=== PATIENT | female | born 1980 ===

== ENCOUNTER 2016-08-23 12:08 | Emergency (ER) | payer SELFPAY ==
[2016-08-23 14:01] LABS: BASO # 0.1 K/uL (0.0-0.2); BASO % 0.9 % (0.0-2.0); EOS % 0.2 % (0.0-4.0); HEMATOCRIT 38.3 % (34.0-47.0); LYMPH # 1.1 K/uL (1.0-4.3); LYMPH % 8.9 % (20.0-40.0); MEAN CORPUSCULAR HEMOGLOBIN 28.5 pg (27.0-31.0); MEAN CORPUSCULAR HGB CONC 32.4 g/dL (33.0-37.0); MEAN PLATELET VOLUME 10.3 fl (7.2-11.7); MONO # 0.4 K/uL (0.0-0.8); MONO % 3.3 % (0.0-10.0); NEUT # 10.5 K/uL (1.8-7.0); NEUT % 86.7 % (50.0-75.0); PLATELET COUNT 213 K/uL (130-400); RED CELL DISTRIBUTION WIDTH 13.7 % (11.5-14.5); WHITE BLOOD COUNT 12.2 K/uL (4.8-10.8)
[2016-08-23 14:09] LABS: ALB/GLOB RATIO 1.2 (1.0-2.1); ALKALINE PHOSPHATASE 59 U/L (38-126); ALT/SGPT 40 U/L (9-52); AST/SGOT 24 U/L (14-36); BILIRUBIN,TOTAL 0.4 mg/dl (0.2-1.3); BLOOD UREA NITROGEN 12 mg/dl (7-17); CALCIUM 9.3 mg/dL (8.4-10.2); CARBON DIOXIDE 19 mmol/L (22-30); CHLORIDE 106 mmol/L (98-107); GFR AFRICAN-AMERICAN > 60; GLUCOSE,RANDOM 87 mg/dL (65-105); POTASSIUM 3.9 MMOL/L (3.6-5.0); SODIUM 133 mmol/l (132-148); TOTAL PROTEIN 7.1 G/DL (6.3-8.2)
--- NOTE | 2016-08-23 14:50 | ED PDOC ---
HPI: Female Pain Time Seen by Provider: 08/23/16 13:00 Chief Complaint (Nursing): Female Genitourinary Chief Complaint (Provider): wayne genitourinary History Per: Patient History/Exam Limitations: no limitations Onset/Duration Of Symptoms: Days (x 1) Current Symptoms Are (Timing): Still Present Associated Symptoms: denies: Fever, Chills, Nausea, Vomiting, Urinary Symptoms Additional Complaint(s): Dayami Quintanilla is a 36 year old female, with no previous medical history, who is currently 6 weeks presenting to the ED with complaints of lower abdominal pain ongoing since yesterday. Pt reports associated symptoms of vaginal bleeding yesterday resulting in 3 saturated pads and lower back pain. Pt denies any fever, chills, urinary symptoms, vaginal discharge or any vaginal bleeding today. of note, pt had 2 miscarriages and 1 PMD: none provided Abnormal Vaginal Bleeding: Yes Past Medical History Reviewed: Historical Data, Nursing Documentation, Vital Signs Vital Signs: Last Vital Signs Temp 98.0 F 08/23/16 12:47 Pulse 75 08/23/16 12:47 Resp 16 08/23/16 12:47 BP 113/62 08/23/16 12:47 Pulse Ox 99 08/23/16 12:47 - Medical History PMH: No Chronic Diseases - Family History Family History: States: No Known Family Hx - Allergies Allergies/Adverse Reactions: Allergies Allergy/AdvReac Type Severity Reaction Status Date / Time No Known Allergies Allergy Verified 08/23/16 12:46 Review of Systems ROS Statement: Except As Marked, All Systems Reviewed And Found Negative Constitutional: Negative for: Fever, Chills Gastrointestinal: Positive for: Abdominal Pain. Negative for: Nausea, Vomiting Genitourinary Female: Positive for: Vaginal Bleeding. Negative for: Dysuria, Frequency, Incontinence, Hematuria, Vaginal Discharge Musculoskeletal: Positive for: Back Pain (lower) Physical Exam - Reviewed Nursing Documentation Reviewed: Yes Vital Signs Reviewed: Yes - Physical Exam Appears: Positive for: Well, Non-toxic, No Acute Distress Head Exam: Positive for: ATRAUMATIC, NORMAL INSPECTION, NORMOCEPHALIC Skin: Positive for: Normal Color, Warm, DRY Eye Exam: Positive for: EOMI, Normal appearance, PERRL ENT: Positive for: Normal ENT Inspection Neck: Positive for: Normal, Painless ROM Cardiovascular/Chest: Positive for: Regular Rate, Rhythm Respiratory: Positive for: CNT, Normal Breath Sounds Gastrointestinal/Abdominal: Positive for: Bowel Sounds, Soft, Tenderness ( pelvic tenderness ) Back: Positive for: Other (diffuse lower back tenderness). Negative for: L CVA Tenderness, R CVA Tenderness Extremity: Positive for: Normal ROM Neurologic/Psych: Positive for: Alert, Oriented - Laboratory Results Result Diagrams: 08/23/16 13:40 08/23/16 13:40 - ECG O2 Sat by Pulse Oximetry: 99 (RA) Pulse Ox Interpretation: Normal Medical Decision Making Medical Decision Making: Initial Impression: r/o ectopic Initial Plan: * type and screen * ABO-RH * beta--HCG * labs * US 1st trimester * reevaluation * * US: shows live IUP @8weeks. advise to continue care Scribe Attestation: Documented by Ashley Mccray, acting as a scribe for Raine Lopez PA-C. Provider Scribe Attestation: All medical record entries made by the Scribe were at my direction and personally dictated by me. I have reviewed the chart and agree that the record accurately reflects my personal performance of the history, physical exam, medical decision making, and the department course for this patient. I have also personally directed, reviewed, and agree with the discharge instructions and disposition. Disposition - Clinical Impression Clinical Impression: - Patient ED Disposition Is Patient to be Admitted: No Counseled Patient/Family Regarding: Studies Performed, Diagnosis, Need For Followup - Disposition [facility] Disposition: Routine/Home Disposition Time: 16:51 Condition: GOOD Instructions: (ED)
[2016-08-23 15:44] LABS: EOSINOPHIL 2 % (0-7); NEUTROPHIL 85 % (42-75); REACTIVE LYMPHOCYTES 1 % (0-0); TOTAL CELLS COUNTED 100
[2016-08-23 15:47] LABS: LARGE PLATELETS PRESENT
--- NOTE | 2016-08-23 16:35 | US ---
Indication: 6 weeks , heavy vaginal bleeding. Comparison: None available Technique: Transabdominal pelvic ultrasound. The patient refused transvaginal pelvic ultrasound. Findings: The uterus measures approximately 13.9 x 5.0 x 6.8 cm. Cervix length measures approximately 4.0 cm. There is a single intrauterine fetus present. 4 mm yolk sac. The gestational sac measures 3.1 cm and is compatible with a gestational age of 8 weeks 0 days. The crown-rump length measures 0.8 cm and is compatible with a gestational age of 6 weeks 5 days. There is heart motion which measured 131 BPM. The right ovary measures 3.4 x 3.5 x 2.4 cm and contains 2.0 x 1.5 x 1.8 cm hypo echogenicity with surrounding vascularity, likely corpus luteal cyst. The left ovary is not visualized. Blood flow is demonstrated to the right ovary. Impression: Live single intrauterine with estimated gestational age 8 weeks 0 days by gestational sac calculation and 6 weeks 5 days by crown-rump length calculation. heart rate 131 bpm. Advise an anomaly screen at 16-18 weeks gestational age Probable 2.0 cm right corpus luteal cyst. The left ovary was not visualized.
[2016-08-23 17:30] VITALS: BP 128/78; PULSE 78; RESP 20; TEMP 98; O2SAT 98
== END 2016-08-23 17:30 | disposition home or self-care (01) ==
LOC: H.ER 12:08
DX: Z33.1 Pregnant state, incidental (principal); Z3A.01 Less than 8 weeks gestation of pregnancy

== ENCOUNTER 2016-12-08 17:11 | Emergency (ER) | payer SELFPAY ==
[2016-12-08 19:18] VITALS: BMI 29.5
[2016-12-08 20:33] LABS: SQUAMOUS EPITHIAL < 1 /hpf (0-5); URINE BILIRUBIN NEGATIVE (NEGATIVE); URINE BLOOD NEGATIVE (NEGATIVE); URINE CALCIUM OXALATE CRYSTALS RARE /hpf (<OCC); URINE CLARITY CLEAR (Clear); URINE COLOR YELLOW (YELLOW); URINE GLUCOSE (UA) NEG (Normal); URINE LEUKOCYTE ESTERASE NEG Leu/uL (Negative); URINE NITRATE NEGATIVE (NEGATIVE); URINE PROTEIN NEGATIVE (NEGATIVE); URINE UROBILINOGEN 0.2-1.0 mg/dL (0.2-1.0)
--- NOTE | 2016-12-08 21:00 | OBHP ---
Datetime: 12/08/2016 17:48 IP Adm Impression: , intrauterine ; No Active Labor IP Chief Complaint Other: Lower back pain IP Admit Plan: Observation/Evaluation Admit Comment, IP Provider: This a 36 y/o with 21.6 weeks GA, JOCE 04/14/17 by LMP and confirmed by 1st trim US, presents with low back pain. Pain began 2 weeks ago, 7/10 intensity, progressively a ggravating, non-radiating and exacerbated with prolong standing and sitting. OTC Tylenol provided NO improvement. Pt also complains of scant white vaginal discharge since a few days ago. Last coitus 2-3 weeks ago. Pt denies trauma, CP, SOB, vaginal bleeding, urinary frequency or dysuria. Medications: PNV. NKDA. PMHx: denied. PSHx: denied. OBHx: 3 spontaneous abortions during 1st trimester, last 2 on 2014 and 2015; 1 induced . P ap smear on 07/29/16: ASCUS HPV neg. SHx: NO smoking, alcohol or recreational drugs. A_P: 36 y/o with 21.6 weeks GA with persistent low back pain. Pt will be observed. FHT monitoring. urinalysis, urine culture. Lan Rust, PGY-1. The patient was observed for several hours the cervix was long closed posterior no cervical change s noted. UA was negative patient was advised to continue her stretching exercises consider physical t herapy and follow-up with PMD this week. labor precautions provided Pelvic Type - PN: Adequate Extremities - PN: Normal Abdomen - PN: Normal Back - PN: Abnormal Breast - PN: Normal Lungs - PN: Normal Heart - PN: Normal Thyroid - PN: Normal Neurologic - PN: Normal HEENT - PN: Normal General - PN: Normal FHR - Baseline A Provider: 140 Comments, ACOG Physical Exam: Gen: AAO x3, not in distress HEENT: NT, NC. CV: s1 and s2 present. Lungs: CTAB b/l Posterior thorax: presence of tenderness. ABD: . non-tender. IP Hx Assessment: The History has been Reviewed and is Current EGA AdmitDate IP: 21.6 Vital Signs Provider: Reviewed; Within Normal Limits IP Chief Complaint: Other NICHD Variability Prov Fetus A: Moderate 6-25bpm NICHD Accel Fetus A IP Provider: 15X15 Genitourinary Exam: Normal DTRs - PN: Normal
== END 2016-12-08 20:55 | disposition home or self-care (01) ==
LOC: H.EROB2 17:11
DX: O47.02 False labor before 37 completed weeks of gestation, second trimester (principal); Z3A.21 21 weeks gestation of pregnancy; O26.92 Pregnancy related conditions, unspecified, second trimester; M54.5 Low back pain

== ENCOUNTER → 2016-12-30 | Emergency (ER) | payer SELFPAY ==
[2016-12-30 17:57] VITALS: BMI 33.2
[2016-12-30 18:32] LABS: SQUAMOUS EPITHIAL 1 /hpf (0-5); URINE BILIRUBIN NEGATIVE (NEGATIVE); URINE CLARITY CLOUDY (Clear); URINE COLOR YELLOW (YELLOW); URINE GLUCOSE (UA) NEG (Normal); URINE LEUKOCYTE ESTERASE NEG Leu/uL (Negative); URINE NITRATE NEGATIVE (NEGATIVE); URINE PROTEIN NEGATIVE (NEGATIVE); URINE UROBILINOGEN 0.2-1.0 mg/dL (0.2-1.0)
[2016-12-30 18:38] LABS: URINE BACTERIA RARE (<OCC); URINE BLOOD SMALL (NEGATIVE)
--- NOTE | 2016-12-31 09:57 | OBHP ---
Datetime: 12/30/2016 16:50 IP Adm Impression: , intrauterine ; No Active Labor IP Admit Plan: Observation/Evaluation; Discharge home Admit Comment, IP Provider: 36 y/o female with 25 weeks GA, OJCE 04/14/17 by LMP and confirme d by 1st trim US, presents to [facility] after noticing bright red blood after wiping in tissue paper about an hour ago.Denies seeing clots of blood.Pt was seen at [facility] this morning for regular visit. denies any abdominal trauma. Last coitus more than 3 weeks ago. 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 OBHx: 3 spontaneous abortions during 1st trimester, last 2 on 07/2015 and 02/2015; 1 induced abortio n. Pap smear on 07/29/16: ASCUS HPV neg. Medications: PNV. Allergies: NKDA. PMHx: denied. PSHx: denied. SHx: NO smoking, alcohol or recreational drugs. assessment: 36 y/o female with 25 weeks GA, JOCE 04/14/17 by LMP and confirmed by 1st trim US, presents to [facility] after noticing bright red blood after wiping in tissue paper about an hour ago. Plan: Continue monitor. UA UA is neg for leukocytes and nitrites. shows small quantity of urine blood. urine cx is sent and p t is advised to f/u with her OB clinic. labor precaution given. All the concerns and question s were answered. case presented and discussed with on-call OB hospitalist Dr. Romero Pantoja, PGY1 Addendum: I saw on exam and patient presentation. No evidence of labor at this time. Both maternal w ell-being and well-being reassuring at this time. Patient discharged home with labor pr eceverette. Romero Extremities - PN: Normal Abdomen - PN: Normal Back - PN: Normal Lungs - PN: Normal Heart - PN: Normal Neurologic - PN: Normal HEENT - PN: Normal General - PN: Normal FHR - Baseline A Provider: 150 Comments, ACOG Physical Exam: Pelvic exam: no blood seen in vaginal vault and speculum. cervix is lo ng and closed. Gestation - Est Wks by US: 25 weeks IP Hx Assessment: The History has been Reviewed and is Current EGA AdmitDate IP: 25.0 Vital Signs Provider: Reviewed IP Chief Complaint: Vaginal bleeding NICHD Variability Prov Fetus A: Moderate 6-25bpm NICHD Accel Fetus A IP Provider: 10X10 FHR Category Provider Fetus A: Category I NICHD Decel Fetus A IP Provider: None Genitourinary Exam: Normal DTRs - PN: Normal
== END | disposition home or self-care (01) ==
LOC: H.EROB2 16:10
DX: O47.02 False labor before 37 completed weeks of gestation, second trimester (principal); Z3A.25 25 weeks gestation of pregnancy

== ENCOUNTER 2017-04-05 21:55 | Emergency (ER) | payer SELFPAY ==
[2016-12-30 17:57] VITALS: BMI 33.2
[2017-04-06 03:26] VITALS: BP 125/61; PULSE 75
--- NOTE | 2017-04-06 08:38 | OBDCSUM ---
Datetime: 04/05/2017 23:03 Discharged to, Provider: Home Follow up at, Provider: [facility] Disch Instr Activity: Normal activity Disch Instr Diet: Regular Discharge Diagnosis, Provider: Regla Labor - Undelivered Discharge Time: 04/05/2017 23:03 Follow up in weeks, Provider: 04/08/2017 Disch Referrals: None Discharge Comment, Provider: Ob hosptialist note. I saw and examined this pt with PGY1 agree with note karmen
--- NOTE | 2017-04-06 08:39 | OBHP ---
Datetime: 04/05/2017 23:06 IP Adm Impression: Term, intrauterine IP Admit Plan: Discharge home Admit Comment, IP Provider: 36 y/o female at 38wks gestation, JOCE 04/14 by LMP consistent wi th 12wk US presents to [facility] with irregular CNTx 4hrs q 30-45min and mucuous plug release noticed toda y. Pt denies vaginal bleeding, loss of fluid, dysuria, flank pain, n/v/d, fever, chills, or headache. Pt reports occassionaly seeing spots but at the moment has no visusal disturbances. PNC: seen at [facility]. Last U/S 03/30, cephalic, BPP 01/11. Last appt 03/30, pt had +2 albumin urine. and had 24 hr test done. Results reviewed. PNC unremarkable ObsHx: 3SAB 1st trimester, 1TOP GYNHx: ASCUS, HPV neg (2017) PMHx: Trace aortic stenosis, mitral regurge, Obesity FMHx: Hx of anyerisms Surg hx: denies Meds: PNV, Iron NKDA Vitals: BP 126/52, HR 69, Afebrile General: NAD HEENT: EOM in tact, PEERLA Cardiac: RRR, normal S1, S2, no murmurs Pulm: CTABL Abdomen: Gravid, NT Extremities: +1 pitting edema up to ankles BL Pelvic exam: Cervix FT Assessment: IUP at 38.5wks with irregular CTX q 30-45 minutes x 4hrs and mucuous plug, no signs of active labor. FHT reactive. Maternal vital signs stable. Plan: Discharge to home. Advised to follow up at next appointment on 04/08. Labor precautions prov ided. Patient verbalized understanding. Discussed with OB Attending Dr. Lydia Fernandez, PGY1 Ob hosptialist note. I saw and examined this pt with PGY1 agree with note mahndo Pelvic Type - PN: Adequate Extremities - PN: Normal Abdomen - PN: Normal Back - PN: Normal Breast - PN: Not Done Lungs - PN: Normal Heart - PN: Normal Thyroid - PN: Not Done Neurologic - PN: Not Done HEENT - PN: Normal General - PN: Normal Presentation-Admit: Vertex FHR - Baseline A Provider: 130 IP Hx Assessment: The History has been Reviewed and is Current EGA AdmitDate IP: 38.5 Vital Signs Provider: Reviewed; Within Normal Limits IP Chief Complaint: Uterine contractions NICHD Variability Prov Fetus A: Moderate 6-25bpm NICHD Accel Fetus A IP Provider: 15X15 FHR Category Provider Fetus A: Category I NICHD Decel Fetus A IP Provider: None Dilatation, Provider: FT Genitourinary Exam: Not Done DTRs - PN: Not Done
== END 2017-04-05 23:10 | disposition home or self-care (01) ==
LOC: H.EROB2 21:55 → H.EROB 21:55 → H.EROB2 23:10
DX: O47.1 False labor at or after 37 completed weeks of gestation (principal); Z3A.38 38 weeks gestation of pregnancy

== ENCOUNTER 2017-07-17 12:24 | Emergency (ER) | payer SELFPAY ==
[2017-07-17 12:24] VITALS: BMI 36.7
[2017-07-17 12:39] VITALS: BP 127/78; PULSE 71; RESP 16; TEMP 98.3; O2SAT 99
[2017-07-17] MEDS ORDERED: Naproxen 500 MG TAB PO ONE (13:46)
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
[2017-07-17] MEDS ORDERED: Naproxen 500 MG TAB PO STA (13:51)
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
--- NOTE | 2017-07-17 15:25 | CT ---
PROCEDURE: CT HEAD WITHOUT CONTRAST. HISTORY: r/o bleed COMPARISON: None available. TECHNIQUE: Axial computed tomography images were obtained through the head/brain without intravenous contrast. Radiation dose: Total exam DLP = 761.31 mGy-cm. This CT exam was performed using one or more of the following dose reduction techniques: Automated exposure control, adjustment of the mA and/or kV according to patient size, and/or use of iterative reconstruction technique. FINDINGS: HEMORRHAGE: No intracranial hemorrhage. BRAIN: No mass effect or edema. No atrophy or chronic microvascular ischemic changes. VENTRICLES: Unremarkable. No hydrocephalus. CALVARIUM: Unremarkable. PARANASAL SINUSES: Unremarkable as visualized. No significant inflammatory changes. MASTOID AIR CELLS: Unremarkable as visualized. No inflammatory changes. OTHER FINDINGS: None. IMPRESSION: Normal CT of the Head. No acute intracranial hemorrhage.
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
== END 2017-07-17 17:05 | disposition home or self-care (01) ==
LOC: H.ER 12:24
DX: T07.XXXA Unspecified multiple injuries, initial encounter (principal); Y04.0XXA Assault by unarmed brawl or fight, initial encounter; Y92.89 Other specified places as the place of occurrence of the external cause; J32.0 Chronic maxillary sinusitis